=== PATIENT | male | born 1950 | race Caucasian/White ===

== ENCOUNTER 2017-01-16 07:12 | Day surgery (SDC) | payer BC ==
[~2017-01-16] VITALS: Ht 188 cm; Wt 77.2 kg
[~2017-01-16 07:12] MED LIST: ASPIRIN 81M81 MG/TA2 PO; LIPITOR20 MG PO; LITHIUM 30300 MG/CAP PO; LITHOBID 3300 MG/TAB PO; MULTIPLE VITAMI1 CAP PO; NORCO 325 MG-51 TAB PO; TOPROL XL25 MG PO; VERAPAMIL240 MG PO; VERELAN240 MG PO
[2017-01-16 07:45] VITALS: BP 117/81; PULSE 90; TEMP 97.4
[2017-01-16] MEDS ORDERED: B-121000 MCG PO (08:02)
[2017-01-16] MEDS ORDERED: MAGNESIUM250 M1 PO (08:03)
[2017-01-16] MEDS ORDERED: VITAMINE200 PO (08:04)
[2017-01-16] MEDS ORDERED: MOTRIN 200200 MG/TAB PO (08:05)
[2017-01-16 08:10] LABS: CALCIUM 9.5 mg/dL (8.4-10.2); CREATININE, serum 0.78 mg/dL (0.66-1.25); POTASSIUM 4.1 mmol/L (3.4-5.0)
[2017-01-16 10:40] VITALS: BP 109/72; PULSE 71; TEMP 97.9
[2017-01-16 10:55] VITALS: BP 111/68; PULSE 72
[2017-01-16] MEDS ORDERED: NORCO 325 MG-51 TAB PO (10:55)
[2017-01-16 11:10] VITALS: BP 105/64; PULSE 78
[2017-01-16 11:45] VITALS: BP 105/66; PULSE 79
== END 2017-01-16 13:00 | disposition home or self-care (01) ==
LOC: SDCO 07:12
PROVIDERS: Nurse Anesthetist, Certified Registered
DX: K40.90 Unilateral inguinal hernia, without obstruction or gangrene, not specified as recurrent (principal); Z88.0 Allergy status to penicillin; Z88.1 Allergy status to other antibiotic agents; Z79.82 Long term (current) use of aspirin; I48.91 Unspecified atrial fibrillation; Z80.8 Family history of malignant neoplasm of other organs or systems; F17.210 Nicotine dependence, cigarettes, uncomplicated; Z82.49 Family history of ischemic heart disease and other diseases of the circulatory system; Z80.42 Family history of malignant neoplasm of prostate; I10 Essential (primary) hypertension; G44.009 Cluster headache syndrome, unspecified, not intractable; K21.9 Gastro-esophageal reflux disease without esophagitis; I08.0 Rheumatic disorders of both mitral and aortic valves
CPT/HCPCS: A4314; C1781; J0690; J1100; J1885; J2405; J2704; J3010; J7120

== ENCOUNTER → 2019-10-07 | Outpatient (CLI) | payer MEDICARE, OTHER ==
[~2019-10-07] MED LIST changes: +B-121000 MCG PO; +MAGNESIUM250 M1 PO; +MOTRIN 200200 MG/TAB PO; +VITAMINE200 PO
== END ==
LOC: COL.RAD 08:36
DX: C61 Malignant neoplasm of prostate (principal)
CPT/HCPCS: A9503; Q9967

== ENCOUNTER → 2021-06-06 | Outpatient (CLI) | payer MEDICARE, OTHER | LOC: COL.RAD 09:34 | DX: Z12.2 Encounter for screening for malignant neoplasm of respiratory organs (principal); J43.9 Emphysema, unspecified; R91.1 Solitary pulmonary nodule; Z87.891 Personal history of nicotine dependence ==